=== PATIENT | female | born 1965 | race Caucasian/White ===

== ENCOUNTER 2016-12-08 18:03 | Emergency (ER) | payer MEDICAID ==
[~2016-12-08] VITALS: Ht 167.6 cm; Wt 83.9 kg
[~2016-12-08 18:03] MED LIST: NO REPORTED MEDS
[2016-12-08 18:06] VITALS: BP 152/93
[2016-12-08] MEDS ORDERED: IBUPROFEN 400 MG TABLET ONE (18:18)
[2016-12-08] MEDS ORDERED: ACETAMINOPHEN ES 500 MG TABLET ONE (18:18)
[2016-12-08] MEDS ORDERED: IBUPROFEN 400 MG TABLET PO ONE (18:30)
[2016-12-08] MEDS ORDERED: ACETAMINOPHEN ES 500 MG TABLET PO ONE (18:30)
== END 2016-12-08 18:31 | disposition home or self-care (01) ==
LOC: ER 18:04
DX: S80.11XA Contusion of right lower leg, initial encounter (principal); M19.90 Unspecified osteoarthritis, unspecified site; M54.5 Low back pain; G89.29 Other chronic pain; F17.200 Nicotine dependence, unspecified, uncomplicated; Z98.890 Other specified postprocedural states; W18.39XA Other fall on same level, initial encounter; Y93.89 Activity, other specified; Y92.89 Other specified places as the place of occurrence of the external cause; Y99.9 Unspecified external cause status
CPT/HCPCS: 99283; A4606; Z7610

== ENCOUNTER 2017-04-06 14:02 | Inpatient (IN) | payer MEDICAID ==
[~2017-04-06] VITALS: Ht 165.1 cm; Wt 97.5 kg
--- NOTE | 2017-04-06 14:15 | NUR ---
R HIP PAIN S/P FALL YESTERDAY
[2017-04-06] MEDS ORDERED: MORPHINE SULFATE INJ 2 MG/ML DISP.SYRIN IV ONE (14:30)
[2017-04-06] MEDS ORDERED: ONDANSETRON HCL/PF - ER 4 MG/2 ML VIAL IV ONE (14:30)
[2017-04-06] MEDS ORDERED: DEXAMETHASONE SOD PHOSPHATE 4 MG/ML VIAL IV ONE (14:30)
[2017-04-06] MEDS ORDERED: ONDANSETRON HCL/PF 4 MG/2 ML VIAL ONE (14:31)
[2017-04-06] MEDS ORDERED: DEXAMETHASONE SOD PHOSPHATE 10 MG/ML VIAL ONE (14:31)
[2017-04-06] MEDS ORDERED: MORPHINE SULFATE INJ 2 MG/ML DISP.SYRIN ONE ×2 (14:32→14:44)
--- NOTE | 2017-04-06 14:49 | NUR ---
pt taken to xray
[2017-04-06] MEDS ORDERED: IBUP-1482 PO (15:53)
[2017-04-06] MEDS ORDERED: OMEP20CA10 PO (15:53)
[2017-04-06] MEDS ORDERED: TRAM50TA2 PO (15:53)
--- NOTE | 2017-04-06 16:07 | NUR ---
M/S 314-1
--- NOTE | 2017-04-06 16:12 | NUR ---
GAVE REPORT TO NURIS FERGUSON MEDSURG FEMORAL HEAD FRACTURE DR LOWERY ROOM 314
[2017-04-06] MEDS ORDERED: MAG HYDROX/AL HYDROX/SIMETH 30 ML UDC PO PRN (16:30)
[2017-04-06] MEDS ORDERED: MAGNESIUM HYDROXIDE 30 ML UDC PO PRN (16:30)
[2017-04-06] MEDS ORDERED: ACETAMINOPHEN 325 MG TABLET PO PRN (16:30)
[2017-04-06] MEDS ORDERED: Z GUARD REMEDY 2 OZ OINT TP PRN (16:30)
[2017-04-06] MEDS ORDERED: ONDANSETRON HCL/PF 4 MG/2 ML VIAL IVP PRN (16:30)
[2017-04-06] MEDS ORDERED: HYDROCODONE/APAP 5/325MG 1 EACH TABLET PO PRN (16:30)
[2017-04-06] MEDS ORDERED: TRAMADOL HCL 50 MG TABLET PO PRN (16:30)
[2017-04-06 17:00] VITALS: BP 126/90
[2017-04-06] MEDS ORDERED: IBUPROFEN 200 MG TABLET PO PRN (17:00)
--- NOTE | 2017-04-06 17:00 | NUR ---
RN MS NOTES RECEIVED PATIENT FROM E.R. DEPARTMENT VIA [facility], UNDER THE CARE OF DR. LOWERY WITH DX OF RIGHT HIP FRACTURE, PATIENT IS ALERT AND ORIENTED X4, C/O PAIN 8/10 ON RIGHT HIP, SKIN ASSESSMENT COMPLETED, PATIENT IS INDEPENDENT WITH BED MOBILITY, ENCOURAGED PATIENT TO STAY IN BED AND USE A BED FOR VOIDING BUT PATIENT INSISTS ON AMBULATING TO RESTROOM, OFFERED A WALKER AND TO CALL STAFF FOR ASSISTANCE, ALSO EXPLAINED RISKS AND BENEFITS FOR PUTTING WEIGHT ON RIGHT HIP, PIV ON RIGHT AC PATENT AND FLUSHES WELL, PATIENT IS ON MORPHINE 2MG Q4H FOR PAIN, PATIENT REFUSED LABS TONIGHT AND WILL ADD TOMORROW WITH OTHER ROUTINE LABS, ALL NEEDS ATTENDED AND MET, CALL LIGHT WITHINR EACH, WILL CONTINUE TO MONITOR.
[2017-04-06] MEDS: MORPHINE SULFATE INJ 2 MG/ML DISP.SYRIN IV SCH ×2 (17:15→20:50)
--- NOTE | 2017-04-06 18:39 | NUR ---
RN MS NOTES PATIENT SEEN BY DR. LOWERY, AWAITING FOR DR. LUA FOR CONSULT, PATIENT IS IN NO DISTRESS, DENIES PAIN AT THIS TIME, WILL ENDORSE TO KNOT BUMPER FOR VIRIDIANA.
--- NOTE | 2017-04-06 19:35 | NUR ---
MS/RN NOTES RECEIVED PT. LYING DOWN IN BED. AWAKE, ALERT AND ORIENTED X4. BREATHING EVEN AND UNLABORED ON ROOM AIR. NO SOB, RESPIRATORY DISTRESS OR COMPLAINTS OF PAIN NOTED AT THIS TIME. PER DAYSHIFT NURSE PT. IS PENDING ORTHO CONSULT. PT. WITH RIGHT AC 20 GAUGE IV HEPLOCK PRESENT, PATENT AND INTACT. BED LOCKED AND IN LOWEST POSITION, SIDE RAILS UP X2, CALL LIGHT WITHIN REACH, WILL CONTINUE TO MONITOR.
[2017-04-06 20:00] VITALS: BP 130/94
[2017-04-06] MEDS ORDERED: ZOLPIDEM TARTRATE 5 MG TABLET PO PRN (22:00)
[2017-04-07] MEDS: MORPHINE SULFATE INJ 2 MG/ML DISP.SYRIN IV SCH ×3 (00:56→08:38)
--- NOTE | 2017-04-07 06:10 | NUR ---
MS/RN NOTES PT. IS LYING DOWN IN BED RESTING. BREATHING EVEN AND UNLABORED ON ROOM AIR. NO SOB, RESPIRATORY DISTRESS OR COMPLAINTS OF PAIN NOTED AT THIS TIME. PER DAYSHIFT NURSE PT. IS PENDING ORTHO CONSULT. PT. WITH RIGHT AC 20 GAUGE IV HEPLOCK PRESENT, PATENT AND INTACT. BED LOCKED AND IN LOWEST POSITION, SIDE RAILS UP X2, CALL LIGHT WITHIN REACH, WILL CONTINUE TO MONITOR.
[2017-04-07 06:59] LABS: BASOPHILS % (AUTO) 0.2 % (0.0-2.0); EOSINOPHILS % (AUTO) 0.1 % (0.0-6.0); HEMATOCRIT 43 % (33-45); HEMOGLOBIN 14.3 g/dL (11.5-14.8); LYMPHOCYTES # (AUTO) 1.3 /CMM (0.8-4.8); LYMPHOCYTES % (AUTO) 15.4 % (20.0-44.0); MEAN CORPUSCULAR HEMOGLOBIN 32 PG (26.0-33.0); MEAN CORPUSCULAR HGB CONC 33 g/dl (31.0-36.0); MEAN CORPUSCULAR VOLUME 96 fL (82-100); MONOCYTES # (AUTO) 0.6 /CMM (0.1-1.30); MONOCYTES % (AUTO) 6.9 % (2.0-12.0); NEUTROPHILS # (AUTO) 6.8 /CMM (1.8-8.9); NEUTROPHILS % (AUTO) 77.4 % (43.0-81.0); PLATELET COUNT (AUTO) 279 /CMM (150-450); RDW COEFFICIENT OF VARIATION 15.4 (11.5-15.0); RED BLOOD CELL COUNT(AUTO) 4.47 MIL/uL (4.0-5.2); WHITE BLOOD COUNT (AUTO) 8.7 K/uL (4.3-11.0)
[2017-04-07 07:19] LABS: CALCIUM, SERUM 8.9 mg/dL (8.5-10.1); CREATININE 0.5 mg/dL (0.6-1.3); PHOSPHORUS 2.8 mg/dL (2.5-4.9); POTASSIUM 3.8 mmol/L (3.5-5.1)
[2017-04-07] MEDS ORDERED: PANTOPRAZOLE 40 MG TABLET.DR PO SCH (07:30)
[2017-04-07 08:00] VITALS: BP 111/88
[2017-04-07] MEDS ORDERED: HYDR-552 PO (09:50)
--- NOTE | 2017-04-07 12:44 | NUR ---
MS DISCHARGE NOTE: PATIENT DISCHARGE HOME [id number] PICKED UP BY DAUGHTER GENE PT IN STABLE CONDITION WILL FOLLOW UP WITH ORTHO SOBECK IN 1 WEEK .PX PAIN MEDICATIONS GIVEN TO PATIENT ,EXIT CARE DONE PRINTED SIGN AND GIVEN TO PATIENT , ALL BELONGINGS RETURNED TO PATIENT PATIENT UNDERSTAND MEDICATIONS MGMT.
== END 2017-04-07 12:50 | disposition home or self-care (01) | DRG 340 ==
LOC: ER 14:05 → MED 16:46
PROVIDERS: ADMIT Family Medicine; ATTEND Family Medicine
DX: S72.061A Displaced articular fracture of head of right femur, initial encounter for closed fracture (principal); M87.9 Osteonecrosis, unspecified; W19.XXXA Unspecified fall, initial encounter; Y92.9 Unspecified place or not applicable; K21.9 Gastro-esophageal reflux disease without esophagitis; M76.01 Gluteal tendinitis, right hip; M16.11 Unilateral primary osteoarthritis, right hip; Z96.642 Presence of left artificial hip joint; Z82.49 Family history of ischemic heart disease and other diseases of the circulatory system; Z80.7 Family history of other malignant neoplasms of lymphoid, hematopoietic and related tissues; Z91.81 History of falling
CPT/HCPCS: 36415; 73700-TC; 80048-TC; 80061-TC; 83735-TC; 84100-TC; 85025-TC; 87081-TC; A4606; J1100; J2270; J2405; Z7610

== ENCOUNTER 2017-07-10 08:00 | Emergency (ER) | payer MEDICAID ==
[~2017-07-10] VITALS: Ht 165.1 cm; Wt 90.7 kg
[~2017-07-10 08:00] MED LIST changes: +HYDR-552 PO; +IBUP-1957 PO; -NO REPORTED MEDS; +OMEP20CA10 PO; +TRAM50TA2 PO
--- NOTE | 2017-07-10 08:00 | NUR ---
RIGHT HIP PAIN/POSSIBLE HIP DISLOCATION WHEN SHE BENT FORWARD TO PUT ON HER SHOES, MORPHINE SULFATE 8 MG IVP GIVEN FOOD SCIENTIST. PT HAS RT HAND #20 IV ACCESS FOOD SCIENTIST.
[2017-07-10] MEDS ORDERED: HYDROMORPHONE 1 MG/1 ML DISP.SYRIN ONE (08:11)
[2017-07-10] MEDS ORDERED: ONDANSETRON HCL/PF 4 MG/2 ML VIAL ONE (08:11)
[2017-07-10 08:29] LABS: BASOPHILS % (AUTO) 0.3 % (0.0-2.0); EOSINOPHILS # (AUTO) 0.2 /CMM (0.0-0.7); EOSINOPHILS % (AUTO) 3.2 % (0.0-6.0); HEMATOCRIT 40 % (33-45); HEMOGLOBIN 13.7 g/dL (11.5-14.8); LYMPHOCYTES # (AUTO) 0.8 /CMM (0.8-4.8); LYMPHOCYTES % (AUTO) 15.7 % (20.0-44.0); MEAN CORPUSCULAR HEMOGLOBIN 33 PG (26.0-33.0); MEAN CORPUSCULAR HGB CONC 34 g/dl (31.0-36.0); MEAN CORPUSCULAR VOLUME 95 fL (82-100); MONOCYTES # (AUTO) 0.5 /CMM (0.1-1.30); MONOCYTES % (AUTO) 9.5 % (2.0-12.0); NEUTROPHILS # (AUTO) 3.8 /CMM (1.8-8.9); NEUTROPHILS % (AUTO) 71.3 % (43.0-81.0); PLATELET COUNT (AUTO) 262 /CMM (150-450); RDW COEFFICIENT OF VARIATION 15.1 (11.5-15.0); WHITE BLOOD COUNT (AUTO) 5.3 K/uL (4.3-11.0)
[2017-07-10] MEDS ORDERED: ONDANSETRON HCL/PF 4 MG/2 ML VIAL IV ONE (08:30)
[2017-07-10] MEDS ORDERED: IV NS 0.9% 500 ML BAG IV ONE (08:30)
[2017-07-10] MEDS ORDERED: HYDROMORPHONE 1 MG/1 ML DISP.SYRIN IV ONE (08:30)
--- NOTE | 2017-07-10 08:30 | NUR ---
RAC #18 IV ACCESS. BLOOD SAMPLE COLLECTED SENT TO LAB
[2017-07-10 08:54] LABS: INR 0.96 (0.87-1.13)
[2017-07-10 08:59] LABS: CALCIUM, SERUM 8.8 mg/dL (8.5-10.1); CREATININE 0.6 mg/dL (0.6-1.3); POTASSIUM 3.3 mmol/L (3.5-5.1)
[2017-07-10] MEDS ORDERED: PROPOFOL 200 MG/20 ML VIAL IV ONE ×2 (09:00→09:30)
[2017-07-10] MEDS ORDERED: KETAMINE HCL (500MG/10ML) 50 MG/ML VIAL IV ONE ×2 (09:00→09:30)
[2017-07-10] MEDS ORDERED: PROPOFOL 20 ML IV ONE (09:27)
[2017-07-10] MEDS ORDERED: KETAMINE HCL (500MG/10ML) 50 MG/ML VIAL ONE (09:28)
[2017-07-10] MEDS ORDERED: IV NS 0.9% 1,000 ML BAG IV ONE (09:30)
--- NOTE | 2017-07-10 10:55 | NUR ---
Patient discharged to home in stable condition. Written and verbal after care instructions given. Patient verbalizes understanding of instruction.
--- NOTE | 2017-07-10 10:55 | NUR ---
IV removed. Catheter intact and site benign. Pressure and 4x4 applied to site. No bleeding noted.
[2017-07-10 10:56] VITALS: BP 120/70
== END 2017-07-10 10:57 | disposition home or self-care (01) ==
LOC: ER 08:01
DX: T84.020A Dislocation of internal right hip prosthesis, initial encounter (principal); M19.90 Unspecified osteoarthritis, unspecified site; F17.200 Nicotine dependence, unspecified, uncomplicated; Z98.890 Other specified postprocedural states; X58.XXXA Exposure to other specified factors, initial encounter; Y93.89 Activity, other specified; Y92.89 Other specified places as the place of occurrence of the external cause; Y99.8 Other external cause status
CPT/HCPCS: 27265; 36415; 73502 ×2; 80048; 85025; 85730; 96361; 96374; 96375; 99152; 99285; A4606; J1170; J2405; J2704; J3490; J7040; Z7610

== ENCOUNTER 2017-07-27 23:27 | Emergency (ER) | payer MEDICAID ==
[~2017-07-27] VITALS: Ht 167.6 cm; Wt 98.0 kg
--- NOTE | 2017-07-27 23:30 | NUR ---
PT TO ER BED 5. PT BIBRA C/O R HIP DISLOCATION, HX OF SAME. 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 VSS/RESP EVEN UNLABORED/NAD NOTED/SKIN WARM AND DRY/DENIES N-V-D/AOX4. MD AT BEDSIDE.
[2017-07-27] MEDS ORDERED: PROPOFOL 100 ML ONE (23:32)
--- NOTE | 2017-07-27 23:35 | NUR ---
18G IV TO L AC X 1 ATTEMPT USING ASEPTIC TECH, IV FLUSHES EASILY WITH NS.
--- NOTE | 2017-07-27 23:44 | NUR ---
XRAY AT BEDSIDE.
[2017-07-28] MEDS ORDERED: KETAMINE HCL (500MG/10ML) 50 MG/ML VIAL IV ONE
[2017-07-28] MEDS ORDERED: IV NS 0.9% 1,000 ML BAG IV ONE
--- NOTE | 2017-07-28 00:35 | NUR ---
MD, RT. EMT'S, AND NURSE AT BEDSIDE FOR MODERATE SEDATION PROCEDURE. SEE MODERATE SEDATION NOTES.
[2017-07-28] MEDS ORDERED: KETAMINE HCL (500MG/10ML) 50 MG/ML VIAL ONE (00:50)
--- NOTE | 2017-07-28 00:55 | NUR ---
XRAY AT BEDSIDE.
[2017-07-28] MEDS ORDERED: PROPOFOL 200 MG/20 ML VIAL IV ONE ×2 (01:00)
[2017-07-28] MEDS ORDERED: KETOROLAC TROMETHAMINE INJ 30 MG/ML VIAL ONE (02:01)
[2017-07-28 02:07] VITALS: BP 135/91
--- NOTE | 2017-07-28 02:08 | NUR ---
IV removed. Catheter intact and site benign. Pressure and 4x4 applied to site. No bleeding noted. Patient discharged to home in stable condition. Written and verbal after care instructions given,patient instructed not to drive. Patient verbalizes understanding of instruction. Patient ambulatory with a steady gait.
[2017-07-28] MEDS ORDERED: KETOROLAC TROMETHAMINE INJ 60 MG/2 ML VIAL IM ONE (02:30)
[2017-07-28] MEDS ORDERED: ACETAMINOPHEN-COD #3 TABLET (14:03)
[2017-07-28] MEDS ORDERED: TRAMADOL HCL 50 MG TABLET (14:03)
[2017-07-28] MEDS ORDERED: IBUPROFEN 800 MG TABLET (14:03)
[2017-07-28] MEDS ORDERED: HYDROCODONE-ACETAMIN 10-325 MG (14:03)
[2017-07-28] MEDS ORDERED: IBUPROFEN TAB 800MG (14:03)
[2017-07-28] MEDS ORDERED: DIAZEPAM 10 MG TABLET (14:03)
== END 2017-07-28 02:10 | disposition home or self-care (01) ==
LOC: ER 23:30
DX: S73.004A Unspecified dislocation of right hip, initial encounter (principal); E66.9 Obesity, unspecified; F17.200 Nicotine dependence, unspecified, uncomplicated; M19.90 Unspecified osteoarthritis, unspecified site; X58.XXXA Exposure to other specified factors, initial encounter; Y93.89 Activity, other specified; Y92.89 Other specified places as the place of occurrence of the external cause; Y99.8 Other external cause status
CPT/HCPCS: 27250; 73502 ×2; 96360; 96372; 99152; 99285; 99406; A4606; J1885; J3490 ×2; J7030; Z7610

== ENCOUNTER 2017-07-28 13:52 | Emergency (ER) | payer MEDICAID ==
[~2017-07-28] VITALS: Ht 167.6 cm; Wt 90.7 kg
--- NOTE | 2017-07-28 13:54 | NUR ---
AAOX3, CAME TO ER BED 10 VIA WHEELCHAIR C/O R HIP PAIN SINCE LAST NIGHT. SEEN HERE FOR SAME REASON. HAD XRAY TAKEN LAST NIGHT. CMS WNL. RESP IS EVEN AND UNLABORED WITH NAD NOTED. AWAITING MD FOR EVAL.
[2017-07-28] MEDS ORDERED: ACETAMINOPHEN-COD #3 TABLET (14:03)
[2017-07-28] MEDS ORDERED: TRAMADOL HCL 50 MG TABLET (14:03)
[2017-07-28] MEDS ORDERED: DIAZEPAM 10 MG TABLET (14:03)
[2017-07-28] MEDS ORDERED: HYDROCODONE-ACETAMIN 10-325 MG (14:03)
[2017-07-28] MEDS ORDERED: IBUPROFEN TAB 800MG (14:03)
[2017-07-28] MEDS ORDERED: IBUPROFEN 800 MG TABLET (14:03)
--- NOTE | 2017-07-28 14:23 | NUR ---
DR LEUNG AT BEDSIDE FOR EVAL.
[2017-07-28] MEDS ORDERED: HYDROMORPHONE INJ 2 MG/ML DISP.SYRIN IV ONE (14:30)
[2017-07-28] MEDS ORDERED: ONDANSETRON HCL/PF 4 MG/2 ML VIAL IVP ONE (14:30)
[2017-07-28 14:33] LABS: BASOPHILS % (AUTO) 0.1 % (0.0-2.0); EOSINOPHILS # (AUTO) 0.1 /CMM (0.0-0.7); EOSINOPHILS % (AUTO) 0.6 % (0.0-6.0); HEMATOCRIT 35 % (33-45); HEMOGLOBIN 12.4 g/dL (11.5-14.8); LYMPHOCYTES # (AUTO) 1.1 /CMM (0.8-4.8); LYMPHOCYTES % (AUTO) 10.2 % (20.0-44.0); MEAN CORPUSCULAR HEMOGLOBIN 33 PG (26.0-33.0); MEAN CORPUSCULAR HGB CONC 35 g/dl (31.0-36.0); MEAN CORPUSCULAR VOLUME 93 fL (82-100); MONOCYTES # (AUTO) 0.5 /CMM (0.1-1.30); MONOCYTES % (AUTO) 4.6 % (2.0-12.0); NEUTROPHILS # (AUTO) 9.3 /CMM (1.8-8.9); NEUTROPHILS % (AUTO) 84.5 % (43.0-81.0); PLATELET COUNT (AUTO) 287 /CMM (150-450); RDW COEFFICIENT OF VARIATION 13.4 (11.5-15.0); RED BLOOD CELL COUNT(AUTO) 3.78 MIL/uL (4.0-5.2)
[2017-07-28] MEDS ORDERED: HYDROMORPHONE 1 MG/1 ML DISP.SYRIN ONE (14:35)
[2017-07-28] MEDS ORDERED: ONDANSETRON HCL/PF 4 MG/2 ML VIAL ONE (14:35)
[2017-07-28 14:48] LABS: CALCIUM, SERUM 8.5 mg/dL (8.5-10.1); CREATININE 0.7 mg/dL (0.6-1.3); POTASSIUM 3.4 mmol/L (3.5-5.1)
--- NOTE | 2017-07-28 14:49 | NUR ---
PT TO RADIOLOGY FOR HIP CT SCAN VIA [facility].
[2017-07-28 14:52] LABS: INR 0.94 (0.87-1.13)
--- NOTE | 2017-07-28 15:44 | NUR ---
PAGED DIRECTOR OF SERVICES SARY BURGER
--- NOTE | 2017-07-28 15:52 | NUR ---
DR LEUNG ON THE PHONE WITH Carole CARLOS
--- NOTE | 2017-07-28 17:21 | NUR ---
FAXED FACESHEET AND PAPER WORK OVER TO [facility]
--- NOTE | 2017-07-28 18:41 | NUR ---
[facility] CALLED AT [phone],ANA CHIN PAGE NOVEMBER,REFINING ENGINEER REGARDING [place]
--- NOTE | 2017-07-28 19:30 | NUR ---
SPOKE WITH VIDAL AUTOMATIC DATA PROCESSING PLANNER AT [facility] WHOM REQUESTED FAX OF FACE SHEET AND CLINICALS. WILL SEND NOW. FAX: [phone] CALL BACK: [phone]
--- NOTE | 2017-07-28 19:45 | NUR ---
SPOKE WITH VIDAL, TOLD HER WILL SEND INFO ONCE DR. LEUNG UPDATES NOTE.
[2017-07-28 19:46] VITALS: BP 142/68
--- NOTE | 2017-07-28 20:01 | NUR ---
INFO FAXED TO [facility] TECHNICIAN
--- NOTE | 2017-07-28 20:51 | NUR ---
[place] [id number] [address] PHYLLIS SCOTT [phone] ETA 1HR BLS MD LACEY
--- NOTE | 2017-07-28 21:25 | NUR ---
REPORT GIVEN TO DIANE AT [facility] FOR [facility]. PT AWAITING TRANSFER,.
== END 2017-07-28 22:08 | disposition short-term general hospital (02) ==
LOC: ER 13:55
DX: T14.8XXA Other injury of unspecified body region, initial encounter (principal); E87.6 Hypokalemia; M19.90 Unspecified osteoarthritis, unspecified site; M25.551 Pain in right hip; F10.10 Alcohol abuse, uncomplicated; Z96.641 Presence of right artificial hip joint; Z87.891 Personal history of nicotine dependence; X58.XXXA Exposure to other specified factors, initial encounter; Y93.89 Activity, other specified; Y92.89 Other specified places as the place of occurrence of the external cause; Y99.8 Other external cause status
CPT/HCPCS: 36415; 73700; 80048; 85025; 85730; 87081; 96374; 96375; 99285; A4606; J1170; J2405; Z7610

== ENCOUNTER 2017-09-15 20:57 | Emergency (ER) | payer MEDICAID ==
[~2017-09-15] VITALS: Ht 167.6 cm; Wt 90.7 kg
[~2017-09-15 20:57] MED LIST changes: +ACETAMINOPHEN-COD #3 TABLET; +DIAZEPAM 10 MG TABLET; +HYDROCODONE-ACETAMIN 10-325 MG; +IBUPROFEN 800 MG TABLET; +IBUPROFEN TAB 800MG; +TRAMADOL HCL 50 MG TABLET
[2017-09-15] MEDS ORDERED: MORPHINE SULFATE INJ 4 MG/ML DISP.SYRIN ONE (21:17)
[2017-09-15] MEDS ORDERED: ONDANSETRON HCL/PF 4 MG/2 ML VIAL ONE (21:17)
[2017-09-15] MEDS ORDERED: PROPOFOL 20 ML IV ONE (21:17)
[2017-09-15] MEDS ORDERED: PROPOFOL 200 MG/20 ML VIAL IV ONE ×2 (21:30→22:00)
[2017-09-15] MEDS ORDERED: MORPHINE SULFATE INJ 2 MG/ML DISP.SYRIN IV ONE (21:30)
[2017-09-15] MEDS ORDERED: ONDANSETRON HCL/PF - ER 4 MG/2 ML VIAL IV ONE (21:30)
--- NOTE | 2017-09-15 21:38 | NUR ---
DR VIVAR, RT, ASIM ZAYAS AT BEDSIDE FOR R HIP REDUCTION VIA CONSCOIOUS SEDATION. 2137- 100MG PROPOFOL GIVEN IVP BY DR VIVAR. 2142- PT IS STILL AWAKE, 30MG PROPOFOL GIVEN BY DR VIVAR. 2149- RADIOLOGY AT BEDSIDE FOR POST REDUCTION XRAY. 2152- PT IS FULLY AWAKE. ON MONITOR. STABLE VITALS.
--- NOTE | 2017-09-15 21:53 | NUR ---
PT IS FULLY AWAKE. AAOX3. ON MONITOR. STABLE VITALS.
[2017-09-15] MEDS ORDERED: IV NS 0.9% 1,000 ML BAG IV ONE (22:00)
[2017-09-15 22:32] VITALS: BP 132/76
--- NOTE | 2017-09-15 22:32 | NUR ---
Patient discharged to home in stable condition. Written and verbal after care instructions given. Patient verbalizes understanding of instruction.IV removed. Catheter intact and site benign. Pressure and 4x4 applied to site. No bleeding noted.
== END 2017-09-15 22:33 | disposition home or self-care (01) ==
LOC: ER 21:01
DX: S73.014A Posterior dislocation of right hip, initial encounter (principal); M19.90 Unspecified osteoarthritis, unspecified site; F17.200 Nicotine dependence, unspecified, uncomplicated; Z98.890 Other specified postprocedural states; X58.XXXA Exposure to other specified factors, initial encounter; Y93.89 Activity, other specified; Y92.89 Other specified places as the place of occurrence of the external cause; Y99.8 Other external cause status
CPT/HCPCS: 27265; 73501 ×2; 96374; 96375; 99152; 99285; A4606; J2270; J2405 ×2; J2704; J7030; Z7610

== ENCOUNTER 2017-09-28 13:08 | Emergency (ER) | payer MEDICAID, OTHER ==
[~2017-09-28] VITALS: Ht 167.6 cm; Wt 88.0 kg
[2017-09-28 13:11] VITALS: BP 126/74
== END 2017-09-28 13:34 | disposition home or self-care (01) ==
LOC: ER 13:19
DX: J40 Bronchitis, not specified as acute or chronic (principal); M19.90 Unspecified osteoarthritis, unspecified site; F10.10 Alcohol abuse, uncomplicated; F17.200 Nicotine dependence, unspecified, uncomplicated; Z98.890 Other specified postprocedural states
CPT/HCPCS: 99283; A4606; Z7610

== ENCOUNTER 2017-12-22 12:52 | Emergency (ER) | payer MEDICAID | END 2017-12-22 13:21 | disposition left against medical advice (07) | LOC: ER 12:56 | DX: Z53.21 Procedure and treatment not carried out due to patient leaving prior to being seen by health care provider (principal) ==

== ENCOUNTER 2019-08-16 20:27 | Emergency (ER) | payer MEDICAID ==
[~2019-08-16] VITALS: Ht 165.1 cm; Wt 86.2 kg
[~2019-08-16 20:27] MED LIST changes: +HYDR-4384 PO; -HYDR-552 PO; -OMEP20CA10 PO; +OMEP20CA15 PO
--- NOTE | 2019-08-16 20:30 | NUR ---
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 PT STATES "I JUST SAT DOWN ON A CHAIR AND FELT SOMETHING WEIRD" HX R HIP DISLOCATION 7X, pt awake, alert, pt to bed 3, pt on monitor, vss, nad noted, pending md draper
[2019-08-16] MEDS ORDERED: MORPHINE SULFATE INJ 4 MG/ML DISP.SYRIN ONE ×2 (20:51→21:40)
[2019-08-16] MEDS ORDERED: MORPHINE SULFATE INJ 2 MG/ML DISP.SYRIN IV ONE ×2 (21:00→22:00)
[2019-08-16 21:38] LABS: BASOPHILS % (AUTO) 0.4 % (0.0-2.0); EOSINOPHILS % (AUTO) 2.6 % (0.0-6.0); HEMATOCRIT 42 % (33-45); LYMPHOCYTES # (AUTO) 2.6 /CMM (0.8-4.8); LYMPHOCYTES % (AUTO) 33.3 % (20.0-44.0); MEAN CORPUSCULAR HGB CONC 33 g/dl (31.0-36.0); MEAN CORPUSCULAR VOLUME 97 fL (82-100); MONOCYTES # (AUTO) 0.6 /CMM (0.1-1.30); MONOCYTES % (AUTO) 7.7 % (2.0-12.0); NEUTROPHILS # (AUTO) 4.4 /CMM (1.8-8.9); PLATELET COUNT (AUTO) 271 /CMM (150-450); RED BLOOD CELL COUNT(AUTO) 4.34 MIL/uL (4.0-5.2); WHITE BLOOD COUNT (AUTO) 7.9 K/uL (4.3-11.0)
[2019-08-16 21:55] LABS: CALCIUM, SERUM 9.6 mg/dL (8.5-10.1); CREATININE 0.6 mg/dL (0.6-1.3); POTASSIUM 3.1 mmol/L (3.5-5.1)
[2019-08-16] MEDS ORDERED: HYDROMORPHONE 1 MG/1 ML DISP.SYRIN ONE (23:02)
[2019-08-16] MEDS ORDERED: HYDROMORPHONE 1 MG/1 ML DISP.SYRIN IV ONE (23:30)
--- NOTE | 2019-08-16 23:52 | NUR ---
PT ACCEPTED AT [facility], AWAITING BED ASSIGNMENT
--- NOTE | 2019-08-17 00:05 | NUR ---
TRANSFER INFO: [phone], RN MAISHA FOR REPORT [phone] ETA TO FOLLOW
--- NOTE | 2019-08-17 00:27 | NUR ---
[facility] AMBULNJens ETA 0120
--- NOTE | 2019-08-17 00:35 | NUR ---
DR. CHO AT THE BED SIDE
--- NOTE | 2019-08-17 00:42 | NUR ---
REPORT GIVEN TO PHYLLIS FERRERA AT [facility]
--- NOTE | 2019-08-17 01:15 | NUR ---
PT WAS ASSISTED W/ A BED A RUBIO. CURRENTLY SITTING IN BED WITH NO C/O PAIN. AWAITING FOR TRANSPO
[2019-08-17 01:35] VITALS: BP 135/88
--- NOTE | 2019-08-17 01:51 | NUR ---
pt was transferred to [facility] in stable condition via gurney, all belongings picked up by Afsaneh jackson.
== END 2019-08-17 01:55 | disposition short-term general hospital (02) ==
LOC: ER 20:34
DX: M25.551 Pain in right hip (principal); F10.10 Alcohol abuse, uncomplicated; F17.200 Nicotine dependence, unspecified, uncomplicated; Y90.9 Presence of alcohol in blood, level not specified; Z96.641 Presence of right artificial hip joint; Z98.890 Other specified postprocedural states; Z88.0 Allergy status to penicillin; Z79.899 Other long term (current) drug therapy; Z89.621 Acquired absence of right hip joint
CPT/HCPCS: 36415; 73502; 80048; 85025; 96374; 96375; 96376; 99285; J1170; J2270 ×2

== ENCOUNTER 2024-12-21 20:10 | Emergency (ER) | payer MEDICAID, OTHER ==
[~2024-12-21] VITALS: Ht 157.5 cm; Wt 79.4 kg
[2024-12-21] MEDS: IV NS 0.9% 1,000 ML BAG IV ONE (22:55)
[2024-12-21 23:00] LABS: BASOPHILS % (AUTO) 0.4 % (0.0-2.0); EOSINOPHILS % (AUTO) 0.3 % (0.0-6.0); HEMATOCRIT 45 % (33-45); LYMPHOCYTES % (AUTO) 20.5 % (20.0-44.0); MEAN CORPUSCULAR HEMOGLOBIN 31 PG (26.0-33.0); MEAN CORPUSCULAR HGB CONC 34 g/dl (31.0-36.0); MEAN CORPUSCULAR VOLUME 92 fL (82-100); MONOCYTES # (AUTO) 0.9 K/uL (0.1-1.30); MONOCYTES % (AUTO) 9.2 % (2.0-12.0); NEUTROPHILS # (AUTO) 6.7 K/uL (1.8-8.9); NEUTROPHILS % (AUTO) 69.6 % (43.0-81.0); PLATELET COUNT (AUTO) 312 K/uL (150-450); RED BLOOD CELL COUNT(AUTO) 4.83 MIL/uL (4.0-5.2); RED CELL DISTRIBUTION WIDTH 14.4 % (11.5-15.0); WHITE BLOOD COUNT (AUTO) 9.6 K/uL (4.3-11.0)
[2024-12-21 23:14] LABS: INR 1.02 (0.91-1.10); PARTIAL THROMBOPLASTIN TIME 26.6 SEC (24.3-34.3); PROTHROMBIN TIME 10.8 SECS (9.2-11.1)
[2024-12-21 23:15] LABS: ALBUMIN 4.2 g/dL (3.4-5.0); BILIRUBIN,DIRECT 0.4 mg/dL (0.0-0.2); BILIRUBIN,TOTAL 1.3 mg/dL (0.2-1.0); CALCIUM, SERUM 9.8 mg/dL (8.5-10.1); CREATININE 0.6 mg/dL (0.6-1.3); TOTAL PROTEIN, SERUM 8.4 g/dL (6.4-8.2)
[2024-12-21 23:21] LABS: POTASSIUM 2.8 mmol/L (3.5-5.1)
[2024-12-21] MEDS ORDERED: PANTOPRAZOLE 40 MG VIAL ONE (23:35)
[2024-12-21] MEDS: PANTOPRAZOLE 40 MG VIAL IV ONE (23:44)
[2024-12-22] MEDS ORDERED: POTASSIUM CL. PREMIX PERIPHER. 100 ML ONE (01:42)
[2024-12-22] MEDS: POTASSIUM CL. PREMIX PERIPHER. 50 ML IV SCH (01:54)
[2024-12-22] MEDS ORDERED: POTA10CA43 PO (02:31)
[2024-12-22 03:03] VITALS: BP 136/89; TEMP 99.5; O2SAT 100
[2024-12-22] MEDS: POTASSIUM CHLORIDE 20 MEQ TAB.PRT.SR PO ONE (03:03)
== END 2024-12-22 03:08 | disposition home or self-care (01) ==
LOC: ER 20:15
DX: R11.2 Nausea with vomiting, unspecified (principal); R10.31 Right lower quadrant pain; M19.90 Unspecified osteoarthritis, unspecified site; F17.200 Nicotine dependence, unspecified, uncomplicated; Z79.899 Other long term (current) drug therapy; Z87.19 Personal history of other diseases of the digestive system; Z88.0 Allergy status to penicillin
CPT/HCPCS: 99285; 74176; 71045; 96361; 96375; 93005; 84145; 85025; 80048; 87040 ×2; 83605; 80076; 36415; 85730; 96365; J7030; J2470; J3480; A4223